=== PATIENT | male | born 1960 ===

== ENCOUNTER 2021-09-21 09:45 | Outpatient (CLI) | payer MEDICARE, SELFPAY ==
--- NOTE | ~2021-09-21 | MR_ITS ---
EXAMINATION: MR lumbar spine wo con DATE: 09/21/2021 10:52 INDICATION: Lumbar radiculopathy TECHNIQUE: Magnetic resonance imaging (MRI) of the lumbar spine was performed without intravenous con trast. Sequences included sagittal T2-weighted FSE, sagittal T2-weighted FS FSE, sagittal T1-weighted FSE, and axial T2-weighted FSE. COMPARISON: None FINDINGS: L5 spondylolysis with bilateral pars interarticularis defects and 8 mm anterolisthesis on S1. Normal alignment to the more cephalad lumbar and lower thoracic spine. Vertebral body heights are normal. No rmal bone marrow signal. Mild disc height loss at L5-S1 with annular fissure and disc extrusion with disc material extending 7 mm cephalad to the level of the inferior endplate of L5. The conus medullar is terminates at L2. There is normal signal in the caudal spinal cord. 8 mm T2 hyperintense cyst at t he upper pole the left kidney. Paravertebral soft tissues are otherwise unremarkable. Paravertebral s oft tissues are unremarkable. The following disc levels are specifically discussed: T12-L1: The disc does not extend beyond the endplate margin. There is mild bilateral facet joint oste oarthritis. There is no neural foraminal stenosis. There is no central canal stenosis. L1-L2: Disc is minimally bulging. There is mild left and minimal right facet joint osteoarthritis. Th ere is minimal bilateral neural foraminal stenosis. There is no central canal stenosis. L2-L3: Disc is minimally bulging. There is mild bilateral facet joint osteoarthritis. There is mild b ilateral neural foraminal stenosis. There is no central canal stenosis. L3-L4: Disc is minimally bulging. There is minimal bilateral facet joint osteoarthritis. There is mil d bilateral neural foraminal stenosis. There is no central canal stenosis. L4-L5: Disc is minimally bulging. There is mild left and mild to moderate right facet joint osteoarth ritis. There is mild left and minimal right neural foraminal stenosis. There is no central canal sten osis. L5-S1: Disc extrusion which extends from foraminal zone to foraminal zone. There is moderate left and mild right facet joint osteoarthritis. There is moderate right and moderate to severe left neural fo raminal stenosis with likely mild compression and deformation of the bilateral exiting L5 nerve roots . There is no central canal stenosis. IMPRESSION: 1. L5 spondylolysis with bilateral pars interarticularis defects, 8 mm anterolisthesis on S1 and larg e posterior disc extrusion resulting in moderate to severe left and moderate right neural foraminal s tenosis. 2. Minimal spondylosis in the more cephalad lumbar spine. Reviewed, dictated and finalized at location B. IMPRESSION: 1. L5 spondylolysis with bilateral pars interarticularis defects, 8 mm anteroli sthesis on S1 and large posterior disc extrusion resulting in moderate to sever e left and moderate right neural foraminal stenosis. 2. Minimal spondylosis in the more cephalad lumbar spine.
== END 2021-09-21 09:46 ==
PROVIDERS: PCP Family Medicine; Visit Provider Nurse Practitioner Adult Health
DX: M47.26 Other spondylosis with radiculopathy, lumbar region (principal)
CPT/HCPCS: 72148